=== PATIENT | female | born 1960 | race Caucasian/White ===

== ENCOUNTER 2017-02-27 06:20 | Day surgery (SDC) | payer OTHER ==
[~2017-02-27] VITALS: Ht 154.9 cm; Wt 71.2 kg
[2017-02-27 06:38] VITALS: BP 141/86
[2017-02-27 10:32] VITALS: BP 123/73
== END 2017-02-27 10:20 | disposition home or self-care (01) ==
LOC: GI 06:20 → OR 07:30 → GI 07:30
PROVIDERS: Internal Medicine Gastroenterology
PROC: 0DJD8ZZ Inspection of Lower Intestinal Tract, Via Natural or Artificial Opening Endoscopic (ICD-10-PCS; principal; 2017-02-27 07:30)
PROC: 0DB68ZX Excision of Stomach, Via Natural or Artificial Opening Endoscopic, Diagnostic (ICD-10-PCS; 2017-02-27 07:30)
DX: K30 Functional dyspepsia (principal); K57.30 Diverticulosis of large intestine without perforation or abscess without bleeding; K64.8 Other hemorrhoids; K59.00 Constipation, unspecified; I10 Essential (primary) hypertension; Z68.29 Body mass index [BMI] 29.0-29.9, adult
CPT/HCPCS: 43235; 45378; J1200; J1610; J2250; J2310; J3010; J3490